=== PATIENT | male | born 1980 | race Caucasian/White ===

== ENCOUNTER 2017-01-11 09:09 | Emergency (ER) | payer SELFPAY ==
[2017-01-11 09:25] VITALS: BP 112/62
--- NOTE | 2017-01-11 11:36 | UC ---
I, Oh,Soohveronica, scribed for Juan Morales MD on 01/11/17 at 1111 . Skin Complaint HPI - HPI Summary HPI Summary: This 36 y/o male presents to [facility] for diffuse rash across right sided trunk, bilat arms, and groin area after working around poison shruthi while tending to shed yesterday. Negative SOB, fever, or chills. Negative PMHx except orthopaedic injuries. Pt has been controlling his rash with OTC powder med without much relief. Plan of care involving benadryl rx. - History of Current Complaint Chief Complaint: UCSkin Time Seen by Provider: 01/11/17 10:04 Stated Complaint: RASH Hx Obtained From: Patient, Medical Records Onset/Duration: Sudden Onset, Still Present Timing: Constant Character: Redness, Raised Aggravating: Nothing Alleviating: Nothing Associated Signs & Symptoms: Negative: Fever, Wheezing - Allergy/Home Medications Allergies/Adverse Reactions: Allergies Allergy/AdvReac Type Severity Reaction Status Date / Time Penicillins Allergy Rash Verified 01/11/17 09:19 Home Medications: Home Medications Ibuprofen TAB* [Advil TAB*] 200 mg PO Q6H PRN 01/11/17 [History Confirmed ] Review of Systems Constitutional: Negative Skin: Rash Eyes: Negative ENT: Negative Respiratory: Negative Cardiovascular: Negative Gastrointestinal: Negative Genitourinary: Negative Motor: Negative Neurovascular: Negative Musculoskeletal: Negative Neurological: Negative Psychological: Negative All Other Systems Reviewed And Are Negative: Yes PMH/Surg Hx/FS Hx/Imm Hx - Additional Past Medical History Additional PMH: Blood clot subclavian s/p repair. - Surgical History Surgical History: Yes Surgery Procedure, Year, and Place: BILATERAL KNEE RECONSTRUCTION(PIN IN KNEE); CERVICAL FUSION(PLATE); LT LOWER LEG(PLATE); BLOOD CLOT SUBCLAVIAN REPAIR(NO STENTS OR INPLANTS) - Family History Known Family History: Negative: Cardiac Disease - Social History Alcohol Use: Occasionally Substance Use Type: None Smoking Status (MU): Never Smoked Tobacco Physical Exam Triage Information Reviewed: Yes Vital Signs: Initial Vital Signs Temp 97.0 F 01/11/17 09:20 Pulse 87 01/11/17 09:20 Resp 16 01/11/17 09:20 BP 112/62 01/11/17 09:20 Pulse Ox 99 01/11/17 09:20 Vital Signs Reviewed: Yes - Additional Comments The patient is well-nourished in no acute distress and in no acute pain. The skin is warm and dry and skin color reflects adequate perfusion. Diffuse macular vescicular rash across back, right sided abd, bilat hands, and arms. HEENT: The head is normocephalic and atraumatic. The pupils are equal and reactive. The conjunctivae are clear and without drainage. Nares are patent and without drainage. Mouth reveals moist mucous membranes and the throat is without erythema and exudate. The external ears are intact. The ear canals are patent and without drainage. The tympanic membranes are intact. Neck is supple with full range of motion and non-tender. There are no carotid bruits. There is no neck vein distension. Respiratory: Chest is non-tender. Lungs are clear to auscultation and breath sounds are symmetrical and equal. Cardiovascular: Hear is regular rate and rhythm. There is no murmur or rub auscultated. There is no peripheral edema and pulses are symmetrical and equal. Abdomen: The abdomen is soft and non-tender. There are normal bowel sounds heard in all four quadrants and there is no organomegaly palpated. Musculoskeletal: There is no back pain noted. Extremities are non-tender with full range of motion. There is good capillary refill. There is no peripheral edema or calf tenderness elicited. Neurological: Patient is alert and oriented to person, place and time. The patient has symmetrical motor strength in all four extremities. Cranial nerves are grossly intact. Deep tendon reflexes are symmetrical and equal in all four extremities. Psychiatric: The patient has an appropriate affect and does not exhibit any anxiety or depression. Course/Dx - Course Course Of Treatment: Vital signs reviewed and noted with normotensive BP of 112/ 62. This pt presents with diffuse rash across trunk, groin area, and bilat upper extremities since he worked around poison shruthi tending to shed. Pt was discharged with anti-histamine rx and outpatient f/u. - Diagnoses Provider Diagnoses: 1) rash secondary to poison shruthi exposure Discharge - Discharge Plan Condition: Stable Disposition: HOME Prescriptions: hydrOXYzine HCL TAB* [Atarax 25 MG TAB*] 25 mg PO QID PRN #30 tab PRN Reason: itching predniSONE TAB* [Deltasone TAB*] 20 mg PO DAILY #42 tab Patient Education Materials: Prednisone (By mouth), Hydroxyzine (By mouth), Poison Shruthi (ED), Acute Rash (ED) Referrals: [facility] [place]] - 2 Days Additional Instructions: Be sure to keep your hand cleansed. The documentation as recorded by the Lee mosqueda Soohyun accurately reflects the service I personally performed and the decisions made by me, Juan Morales MD.
== END 2017-01-11 10:25 | disposition home or self-care (01) ==
LOC: UCEAST 09:09
DX: L23.7 Allergic contact dermatitis due to plants, except food (principal); Z88.0 Allergy status to penicillin
CPT/HCPCS: 99212; G0463

== ENCOUNTER 2018-10-28 09:08 | Emergency (ER) | payer BC ==
[2018-10-28 09:21] VITALS: BP 103/59
--- NOTE | 2018-10-28 09:46 | UC ---
Skin Complaint HPI - HPI Summary HPI Summary: 37 yo male presents with RIGHT middle finger puncture wound. He tells me that 3 days ago he was working outside and picked up a piece of wood and sustained a splinter in his right middle finger. He pulled it out, but since that time has had pain, redness, and swelling to the area. He is concerned that there is something retained inside the skin and/or infection. He is right handed. - History of Current Complaint Chief Complaint: UCForeignBody Time Seen by Provider: 10/28/18 09:46 Stated Complaint: FB IN FINGER Hx Obtained From: Patient Onset/Duration: Sudden Onset Onset Severity: Moderate Current Severity: Moderate Pain Intensity: 8 Pain Scale Used: 0-10 Numeric - Allergy/Home Medications Allergies/Adverse Reactions: Allergies Allergy/AdvReac Type Severity Reaction Status Date / Time Penicillins Allergy Rash Verified 10/28/18 09:22 PMH/Surg Hx/FS Hx/Imm Hx - Additional Past Medical History Additional PMH: None - Surgical History Surgical History: Yes Surgery Procedure, Year, and Place: BILATERAL KNEE RECONSTRUCTION(PIN IN KNEE); CERVICAL FUSION(PLATE); LT LOWER LEG(PLATE); BLOOD CLOT SUBCLAVIAN REPAIR(NO STENTS OR IMPLANTS - PER PT) - Family History Known Family History: Negative: Cardiac Disease - Social History Occupation: Employed Full-time Lives: With Family Alcohol Use: None Alcohol Amount: 2 DRINKS Substance Use Type: None Smoking Status (MU): Never Smoked Tobacco Review of Systems All Other Systems Reviewed And Are Negative: Yes Constitutional: Positive: Negative Skin: Positive: Other - Right middle finger puncture wound Respiratory: Positive: Negative Cardiovascular: Positive: Negative Musculoskeletal: Positive: Negative Neurological: Positive: Negative Psychological: Positive: Negative Physical Exam - Summary Physical Exam Summary: GENERAL: NAD. WDWN. No pain distress. SKIN: RIGHT MIDDLE FINGER: ulnar aspect with 1mm puncture wound. Mild surrounding edema, erythema, and tenderness. No streaking, drainage, or bleeding. NECK: Supple. Nontender. CHEST: No accessory muscle use. Breathing comfortably and in no distress. CV: Pulses intact. Cap refill <2seconds NEURO: Alert. PSYCH: Age appropriate behavior. Triage Information Reviewed: Yes Vital Signs: Initial Vital Signs Temp 98 F 10/28/18 09:19 Pulse 91 10/28/18 09:19 Resp 17 10/28/18 09:19 BP 103/59 10/28/18 09:19 Pulse Ox 100 10/28/18 09:19 Vital Signs Reviewed: Yes Course/Dx - Course Course Of Treatment: XR: IMPRESSION: No evidence of radiopaque foreign body is noted. Puncture wound right middle finger with mild cellulitis. tdap was updated today. Will rx for keflex for cellulitis. - Diagnoses Provider Diagnosis: Puncture wound of finger Discharge - Sign-Out/Discharge Documenting (check all that apply): Patient Departure All imaging exams completed and their final reports reviewed: Yes - Discharge Plan Condition: Stable Disposition: HOME Prescriptions: Cephalexin CAP* [Keflex CAP*] 500 mg PO BID #10 cap Patient Education Materials: Puncture Wound (DC) Referrals: Priscila Gerard NP [Primary Care Provider] - Additional Instructions: If you develop a fever, shortness of breath, chest pain, new or worsening symptoms - please call your PCP or go to the ED. There does not appear to be a foreign body in your finger. I believe the redness, pain, and swelling are due to a localized infection from the puncture wound. - Billing Disposition and Condition Condition: STABLE Disposition: Home
[2018-10-28] MEDS ORDERED: Tetan/Diph/Pertus SYR(Tdap)* 0.5 ML SYR(BOOSTRIX) use SYR IM ONE ×3 (10:05→10:55)
== END 2018-10-28 11:15 | disposition home or self-care (01) ==
LOC: UCEAST 09:08
DX: S61.232A Puncture wound without foreign body of right middle finger without damage to nail, initial encounter (principal); W45.8XXA Other foreign body or object entering through skin, initial encounter; Y92.9 Unspecified place or not applicable; Z88.0 Allergy status to penicillin
CPT/HCPCS: 73140; 90471; 90715; 99212; G0463

== ENCOUNTER 2019-09-08 17:53 | Emergency (ER) | payer BC ==
--- NOTE | 2019-09-08 19:08 | ED ---
Laceration/Wound HPI - HPI Summary HPI Summary: 38 year old male returns with left thumb laceration today. He cut the area with a knife. No active bleeding. Tetanus up-to-date. Has no medical conditions. Has full range of motion of the thumb. He denies any numbness or tingling. no foreign body in the wound. - History of Current Complaint Stated Complaint: THUMB LAC PER PT Time Seen by Provider: 09/08/19 18:39 Pain Intensity: 7 - Allergy/Home Medications Allergies/Adverse Reactions: Allergies Allergy/AdvReac Type Severity Reaction Status Date / Time Penicillins Allergy Rash Verified 09/08/19 18:32 PMH/Surg Hx/FS Hx/Imm Hx Endocrine/Hematology History: Denies: Hx Diabetes Cardiovascular History: Denies: Hx Hypertension, Hx Pacemaker/ICD Respiratory History: Denies: Hx Asthma History: Denies: Hx Renal Disease Musculoskeletal History: Denies: Hx Rheumatoid Arthritis, Hx Osteoporosis Sensory History: Denies: Hx Hearing Aid Neurological History: Reports: Other Neuro Impairments/Disorders - PAIN CLINIC PT / HX OF BLOOD CLOT X2. Psychiatric History: Denies: Hx Panic Disorder - Surgical History Surgery Procedure, Year, and Place: BILATERAL KNEE RECONSTRUCTION(PIN IN KNEE); CERVICAL FUSION(PLATE); LT LOWER LEG(PLATE); BLOOD CLOT SUBCLAVIAN REPAIR(NO STENTS OR IMPLANTS - PER PT) Infectious Disease History: No Infectious Disease History: Denies: Traveled Outside the [place] in Last 30 Days - Family History Known Family History: Negative: Cardiac Disease - Social History Alcohol Use: None Alcohol Amount: 2 DRINKS Substance Use Type: Reports: None Smoking Status (MU): Never Smoked Tobacco Review of Systems Negative: Fever Negative: Chest Pain Negative: Shortness Of Breath Positive: Other - left thumb laceration All Other Systems Reviewed And Are Negative: Yes Physical Exam Triage Information Reviewed: Yes Vital Signs On Initial Exam: Initial Vitals Temp Pulse Resp BP Pulse Ox 98.4 F 97 16 112/74 97 09/08/19 18:29 09/08/19 18:29 09/08/19 18:29 09/08/19 18:29 09/08/19 18:29 Vital Signs Reviewed: Yes Appearance: Positive: Well-Appearing Skin: Positive: Warm, Dry, Other - 2cm by 1/2cm flap like laceration to left thumb on proximal phalanx Head/Face: Positive: Normal Head/Face Inspection Eyes: Positive: Normal, Conjunctiva Clear ENT: Positive: Pharynx normal Respiratory/Lung Sounds: Positive: Clear to Auscultation, Breath Sounds Present Cardiovascular: Positive: Normal, RRR Musculoskeletal: Positive: Strength/ROM Intact - left thumb, Other - capillary refill<2secs Neurological: Positive: Normal Psychiatric: Positive: Normal Procedures - Sedation Patient Received Moderate/Deep Sedation with Procedure: No - Laceration/Wound Repair 1 Location: Other - left thumb Description: Irregular Anesthesia: Local, 1.0% Length, Depth and Shape: 2cm by 1/2cm Irrigated w/ Saline (ccs): 500 Closure: Single Layer Number of Sutures: 4 Diagnostics - Vital Signs Vital Signs Temp Pulse Resp BP Pulse Ox 09/08/19 18:29 98.4 F 97 16 112/74 97 - Laboratory Lab Statement: Any lab studies that have been ordered have been reviewed, and results considered in the medical decision making process. Laceration Repair Course/Dx - Course Course Of Treatment: 38 year old male returns with left thumb laceration today. He cut the area with a knife. No active bleeding. Tetanus up-to-date. Has no medical conditions. Has full range of motion of the thumb. He denies any numbness or tingling. On exam has 2 cm by half cm laceration to left thumb. Full range of motion finger. Cleaned area and placed 4 sutures. told keep area clean and dry. Patient understands and agrees with plan. - Differential Dx Differental Diagnoses: Abrasion, Avulsion, Laceration - Clinical Impression Provider Diagnoses: Laceration of left thumb Discharge ED - Sign-Out/Discharge Documenting (check all that apply): Patient Departure - Discharge Plan Condition: Good Disposition: HOME Patient Education Materials: Care For Your Stitches (ED) Referrals: Priscila Gerard NP [Primary Care Provider] - Additional Instructions: Take Tylenol or ibuprofen for pain every 6 hours as needed Keep area clean and dry for 24 hours Return to ED or primary in 8-10 days to have sutures removed Return to ED if develop signs of infection such as fever, spreading redness, or pus. - Billing Disposition and Condition Condition: GOOD Disposition: Home
[2019-09-08 19:54] VITALS: BP 119/73
== END 2019-09-08 19:34 | disposition home or self-care (01) ==
LOC: ED 17:53
DX: S61.012A Laceration without foreign body of left thumb without damage to nail, initial encounter (principal); W26.0XXA Contact with knife, initial encounter; Y92.9 Unspecified place or not applicable; Z88.0 Allergy status to penicillin
CPT/HCPCS: 12001; 99282